=== PATIENT | male | born 1950 | race African-American/Black ===

== ENCOUNTER 2019-02-09 02:48 | Emergency (ER) | payer OTHER ==
[~2019-02-09] VITALS: Ht 170.2 cm; Wt 117.9 kg
[~2019-02-09 02:48] MED LIST: MULTIVITAMINS; OMEPRAZOLE40 MG PO
[2019-02-09 03:11] LABS: ABSOLUTE NEUTROPHILS 7.8 thou/uL (1.4-8.2); EOSINOPHILS 2.6 % (0.0-3.0); HEMATOCRIT 36.7 % (42.0-52.0); HEMOGLOBIN 11.9 gm/dL (14.0-18.0); MCH 28.2 pg (26.0-34.0); MCHC 32.6 g/dL (28.0-37.0); MCV 86.6 fL (80.0-100.0); MONOCYTES 8.4 % (1.0-8.0); PLATELET COUNT 301 thou/uL (150-400); RBC 4.23 mil/uL (4.50-6.00); RDW 14.1 % (10.5-14.5); WBC 13.1 thou/uL (4.0-11.0)
[2019-02-09 03:17] LABS: ANION GAP 9 mmol/L (7-16); BUN 15 mg/dL (7-18); CALCIUM 8.8 mg/dL (8.5-10.1); CHLORIDE 105 mmol/L (98-107); CO2 27 mmol/L (21-32); GLUCOSE 96 mg/dL (74-106); POTASSIUM 3.9 mmol/L (3.5-5.1); SODIUM 141 mmol/L (136-145)
[2019-02-09 03:27] LABS: ALBUMIN 2.9 g/dL (3.4-5.0); SGOT 14 U/L (15-37); SGPT 16 U/L (30-65); TOTAL BILIRUBIN 0.3 mg/dL (<0.1-1.0); TROPONIN-I <0.06 ng/mL (<0.06)
[2019-02-09 04:13] VITALS: BP 130/63
--- NOTE | 2019-02-11 14:57 | EKG ---
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 : 1950 Requested By: Toño Johnson Order Number: [id number] MD: Orion Abreu Measurements Intervals [place] Rate: 90 P: 33 W[place]: 178 QRS: -34 QRSD: 88 T: 38 QT: 361 QTc: 442 Interpretive Statements Sinus rhythm Atrial premature complex Abnormal R-wave progression, late transition Inferior infarct, old Compared to ECG 09/12/2014 08:50:17 Atrial premature complex(es) now present Myocardial infarct finding now present Left-axis deviation no longer present Electronically Signed On 02-11-2019 14:56:44 TEMPERER by Orion Abreu [email or web address] <ELECTRONICALLY SIGNED> By: Orion Abreu MD 02/11/19 1456 1 1 Orion Abreu MD /EPI
== END 2019-02-09 04:14 | disposition home or self-care (01) ==
LOC: ER 02:48
PROVIDERS: Emergency Medicine
DX: R07.9 Chest pain, unspecified (principal)

== ENCOUNTER 2020-07-29 02:16 | Observation (INO) | payer OTHER ==
[2020-07-29] VITALS (9 sets, daily range): BP systolic 17–168; BP diastolic 53–84
[~2020-07-29] VITALS: Ht 170.2 cm; Wt 117.5 kg
[2020-07-29 03:08] LABS: BASOPHILS 0.9 % (0.0-2.0); EOSINOPHILS 2.5 % (0.0-3.0); HEMATOCRIT 37.8 % (42.0-52.0); HEMOGLOBIN 12.6 gm/dL (14.0-18.0); LYMPHOCYTES 30.7 % (24.0-44.0); MCH 29.2 pg (26.0-34.0); MCHC 33.4 g/dL (28.0-37.0); MCV 87.6 fL (80.0-100.0); MONOCYTES 7.7 % (1.0-8.0); PLATELET COUNT 330 thou/uL (150-400); POLYS 58.2 % (36.0-66.0); RBC 4.31 mil/uL (4.50-6.00); RDW 13.4 % (10.5-14.5); WBC 12.1 thou/uL (4.0-11.0)
[2020-07-29 03:16] LABS: ANION GAP 7 mmol/L (7-16); BUN 15 mg/dL (7-18); CALCIUM 8.7 mg/dL (8.5-10.1); CHLORIDE 106 mmol/L (98-107); CO2 29 mmol/L (21-32); CREATININE 1.1 mg/dL (0.7-1.3); GLUCOSE 91 mg/dL (74-106); SODIUM 142 mmol/L (136-145)
[2020-07-29 03:24] LABS: POTASSIUM 4.5 mmol/L (3.5-5.1)
[2020-07-29 03:26] LABS: SGOT 27 U/L (15-37); SGPT 20 U/L (16-63); TOTAL BILIRUBIN 0.3 mg/dL (0.2-1.0); TOTAL PROTEIN 7.9 g/dL (6.4-8.2); TROPONIN-I <0.06 ng/mL (<0.06)
--- NOTE | 2020-07-29 07:32 | NUR ---
TO FLOOR FROM ER AT 0515 PER CART. WALKED TO BED WITH STEADY GAIT. ADMISSION PROCESS INITATED AND COMPLETED. STATES CHEST PAIN IS STILL DECREASING AND ALMOST GONE IS 02/25 AT 0600. STATES REMAINS WITH SOME TINGLING IN LEFT FOOT. REVIEWED PLAN OF CARE. CONSULT CALLED TO CARDIOLOGY. CONTINUE TO ASSES CLOSELY.
[2020-07-29 09:41] LABS: CHOLESTEROL 129 mg/dL (<200); HDL CHOLESTEROL 33 mg/dL (>40); LDL CHOLESTEROL 68 mg/dL (<100); TC:HDL 3.9 Ratio (Not establshd); TRIGLYCERIDE 144 mg/dL (<150); VLDL 29 mg/dL (<40)
--- NOTE | 2020-07-29 15:45 | 2DMMODE ---
[facility] [address] [place] [address] 2 D/M-MODE ECHOCARDIOGRAM Name: AUSTIN CAROLINA CLEMENTE Room #: 201-P ADM IN M.R.#: [id number] Admission: 07/29/20 Attend Phys: Lukas Pan MD Discharge: Date of : 46 Report #: [id number] THIS REPORT FOR: cc: Francisco Mendoza Mohammad K. DO Lammoglia, Francisco J. MD ~ APPROVED REPORT Study performed: 07/29/2020 13:05:07 EXAM: Comprehensive 2D, Doppler, and color-flow Echocardiogram Patient Location: Bedside Room #: 201 Status: on-call BSA: 2.24 HR: 59 bpm BP: 130/75 mmHg Rhythm: NSR Other Information Study Quality: Adequate Indications Chest Pain 2D Dimensions IVSd: 12.12 (7-11mm) LVOT Diam: 21.00 (18-24mm) LVDd: 36.10 mm PWd: 13.79 (7-11mm) Ascending Ao: 34.97 (22-36mm) LVDs: 23.73 (25-40mm) Aortic Root: 29.54 mm LV Single Plane 4CH: 55.12 % LV Single Plane 2CH: 57.40 % Biplane EF: 57.9 % Volumes Left Atrial Volume (Systole) Single Plane 4CH: 61.57 mL Single Plane 2CH: 67.64 mL LA ESV Index: 33.00 mL/m2 Aortic Valve AoV Peak Kimani.: 1.65 m/s AO Peak Gr.: 10.84 mmHg LVOT Max P.66 mmHg LVOT Max V: 0.96 m/s [facility] [address] [place] [address] 2 D/M-MODE ECHOCARDIOGRAM Name: AUSTIN CAROLINA Room #: [address] [place] [address] [place] [facility].#: [id number] Admission: 07/29/20 Attend Phys: Edwin Galarza Discharge: Date of : 46 Report #: [id number] CALLI Vmax: 1.95 cm2 Mitral Valve E/A Ratio: 1.1 MV Decel. Time: 253.87 ms MV E Max Kimani.: 1.13 m/s MV A Kimani.: 1.06 m/s MV PHT: 73.62 ms IVRT: 72.66 ms TDI E/Lateral E': 14.13 E/Medial E': 16.14 Medial E' Kimani.: 0.07 m/s Lateral E' Kimani.: 0.08 m/s Pulmonary Vein P Vein S: 0.54 m/s P Vein A: 0.29 m/s P Vein D: 0.35 m/s P Vein A Dur.: 114.2 msec P Vein S/D Ratio: 1.54 Tricuspid Valve TR Peak Kimani.: 2.70 m/s RAP Estimate: 7.00 mmHg TR Peak Gr.: 29.21 mmHg PA Pressure: 36.00 mmHg Left Ventricle The left ventricle is normal size. There is normal LV segmental wall motion. Mild concentric left ventricular hypertrophy. Left ventricular systolic function is normal. The left ventricular ejection fraction is within the normal range. LVEF is 55-60%. Moderate diastolic dysfunction is present (pseudonormal filling). Right Ventricle The right ventricle is normal size. The right ventricular systolic function is normal. Atria The left atrium size is normal. Right atrium is borderline dilated. Aortic Valve The Aortic valve is sclerotic. No aortic regurgitation is present. There is no aortic valvular stenosis. Mitral Valve [facility] [address] [place] [address] 2 D/M-MODE ECHOCARDIOGRAM Name: [facility]ACLARISALORI [facility] Room #: 201-P [facility] IN ..#: [id number] Admission: 07/29/20 Attend Phys: Edwin Galarza Discharge: Date of : 46 Report #: [id number] The mitral valve is normal in structure. There is no mitral valve regurgitation noted. No evidence of mitral valve stenosis. Tricuspid Valve The tricuspid valve is normal in structure. Mild tricuspid regurgitation. Pulmonary artery pressure is 36 mmHg. Pulmonic Valve The pulmonary valve is normal in structure. Trace pulmonic regurgitation. Great Vessels The aortic root is normal in size. The ascending aorta is normal in size. IVC is normal in size and collapses >50% with inspiration. Pericardium There is no pericardial effusion. <Conclusion> The left ventricle is normal size. Mild concentric left ventricular hypertrophy. LVEF is 55-60%. Right atrium is borderline dilated. The right ventricle is normal size. The right ventricular systolic function is normal. The Aortic valve is sclerotic. The mitral valve is normal in structure. The tricuspid valve is normal in structure. Mild tricuspid regurgitation. Pulmonary artery pressure is 36 mmHg. The pulmonary valve is normal in structure. Trace pulmonic regurgitation. The aortic root is normal in size. There is no pericardial effusion. <ELECTRONICALLY SIGNED> By: Rao Schwab MD 07/29/20 1544 1544 1544 Rao Schwab MD /INF
--- NOTE | 2020-07-29 17:50 | NUR ---
PT CARE ASSUMED AT 0700. ASSESSMENTS CHARTED. MEDICATIONS CHARTED. RAC IV. SINUS RHYTHM. ACHS, HH. NM CARDIAC STRESS TEST 07/30/20. STAND-BY ASSIST.
--- NOTE | 2020-07-30 04:16 | NUR ---
ASSUMED CARE AT 1900, AWAKE, ALERT AND ORIENTED, DENIES CHEST PAIN, MEDS GIVEN PER MAR, SR/SB ON TELE, ASSESSMENTS CHARTED, NO NEEDS AT THIS TIME, WILL CONTINUE TO MONITOR AND FOLLOW PO
[2020-07-30 04:32] VITALS: BP 141/76
[2020-07-30 07:19] VITALS: BP 150/82
--- NOTE | 2020-07-30 07:22 | EKG ---
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 : 1950 Requested By: Alexander Nugent Order Number: [id number] MD: Carter Luis Measurements Intervals [facility] Rate: 74 P: 26 [place]: 173 QRS: -36 QRSD: 80 T: 32 QT: 373 QTc: 414 Interpretive Statements Sinus rhythm Inferior infarct, old Compared to ECG 02/09/2019 02:52:10 Atrial premature complex(es) no longer present Myocardial infarct finding still present Electronically Signed On 07-30-2020 7:22:27 CDT by Carter Luis [email or web address] <ELECTRONICALLY SIGNED> By: Carter Luis MD, [facility] 07/30/20 0722 1 1 Carter Luis MD, [facility] /EPI
[2020-07-30 11:55] VITALS: BP 161/73
[2020-07-30 15:12] VITALS: BP 148/68
[2020-07-30] MEDS ORDERED: NITROGLYCERIN0.4 MG SUBLING (16:45)
[2020-07-30] MEDS ORDERED: METOPROLOL TART25 MG PO (16:45)
[2020-07-30 17:15] VITALS: BP 148/68
--- NOTE | 2020-07-30 17:50 | NUR ---
PATIENT DISCHARGED TO PRIVATE VEHICLE WITH SON AND . NO QUESTION OR CONCERNS ABOUT DISCHARGE INSTRUCTIONS AT TIME OF TEACHING. TAKEN OUT TO CAR IN WHEELCHAIR BY STAFF.
[2020-07-31 00:06] LABS: GLYCOHEMOGLOBIN (HGB A1C) 5.1 % (4.8-5.6)
== END 2020-07-30 18:15 | disposition home or self-care (01) ==
LOC: ER 02:16 → EROBS 04:03 → 2N 04:03
PROVIDERS: Emergency Medicine; Nurse Practitioner Family; ADMIT Hospitalist; ATTEND Hospitalist
DX: R07.89 Other chest pain (principal); I10 Essential (primary) hypertension; N40.0 Benign prostatic hyperplasia without lower urinary tract symptoms; I25.10 Atherosclerotic heart disease of native coronary artery without angina pectoris; E78.5 Hyperlipidemia, unspecified; E66.9 Obesity, unspecified; Z68.41 Body mass index [BMI] 40.0-44.9, adult; Z79.899 Other long term (current) drug therapy
CPT/HCPCS: 10081

== ENCOUNTER → 2020-09-07 | Outpatient (CLI) | payer OTHER ==
[~2020-09-07] MED LIST changes: +METOPROLOL TART25 MG PO; +NITROGLYCERIN0.4 MG SUBLING
== END ==
LOC: SJCVCIMAG 07:15
PROVIDERS: ATTEND Internal Medicine
DX: I73.9 Peripheral vascular disease, unspecified (principal); M79.604 Pain in right leg; M79.605 Pain in left leg